=== PATIENT | female | born 1965 | race Two or more races ===

== ENCOUNTER 2017-07-14 23:45 | Emergency (ER) | payer MEDICAID, OTHER ==
[~2017-07-14] VITALS: Ht 160 cm; Wt 61.2 kg
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
[2017-07-15] MEDS ORDERED: HYDROCODONE/APAP 5/325MG 1 EACH TABLET PO ONE (02:30)
[2017-07-15] MEDS ORDERED: HYDROCODONE/APAP 5/325MG 1 EACH TABLET ONE (02:35)
--- NOTE | 2017-07-15 04:14 | NUR ---
Patient discharged to home in stable condition. Written and verbal after care instructions given. Patient verbalizes understanding of instruction. Patient is ambulatory with steady gait. Instructed patient not to drive. vss. nad noted. no further complaints.
[2017-07-15 04:29] VITALS: BP 133/86
== END 2017-07-15 04:30 | disposition home or self-care (01) ==
LOC: ER 23:47
DX: S16.1XXA Strain of muscle, fascia and tendon at neck level, initial encounter (principal); S00.83XA Contusion of other part of head, initial encounter; S20.219A Contusion of unspecified front wall of thorax, initial encounter; I67.1 Cerebral aneurysm, nonruptured; Z88.1 Allergy status to other antibiotic agents; Z88.8 Allergy status to other drugs, medicaments and biological substances; V49.59XA Passenger injured in collision with other motor vehicles in traffic accident, initial encounter; Y93.89 Activity, other specified; Y92.410 Unspecified street and highway as the place of occurrence of the external cause; Y99.8 Other external cause status
CPT/HCPCS: 70450; 70486; 71045; 99284; A4606; Z7610

== ENCOUNTER 2018-02-13 17:34 | Emergency (ER) | payer MEDICAID ==
[~2018-02-13] VITALS: Ht 157.5 cm; Wt 65.8 kg
[2018-02-13 17:34] VITALS: BP 141/70
--- NOTE | 2018-02-13 20:02 | NUR ---
CALLED PT'S NAME THREE TIMES, NO RESPONSE. PT LEFT BEFORE BEING EVALUATED BY MD. MD MADE AWARE
== END 2018-02-13 20:04 | disposition left against medical advice (07) ==
LOC: ER 17:35
DX: Z53.21 Procedure and treatment not carried out due to patient leaving prior to being seen by health care provider (principal); M54.5 Low back pain; M79.652 Pain in left thigh; M79.651 Pain in right thigh; Z98.890 Other specified postprocedural states; Z88.8 Allergy status to other drugs, medicaments and biological substances; Z88.1 Allergy status to other antibiotic agents
CPT/HCPCS: A4606; Z7610

== ENCOUNTER 2018-10-29 22:38 | Emergency (ER) | payer MEDICAID ==
[~2018-10-29] VITALS: Ht 160 cm; Wt 61.2 kg
[2018-10-29 23:10] VITALS: BP 147/79
[2018-10-29] MEDS ORDERED: IBUPROFEN 600 MG TABLET PO ONE (23:45)
[2018-10-30] MEDS ORDERED: IBUPROFEN 600 MG TABLET PO ONE
== END 2018-10-30 00:47 | disposition home or self-care (01) ==
LOC: ER 22:42
DX: S52.691A Other fracture of lower end of right ulna, initial encounter for closed fracture (principal); Z98.890 Other specified postprocedural states; Z88.6 Allergy status to analgesic agent; Z88.1 Allergy status to other antibiotic agents; Z88.8 Allergy status to other drugs, medicaments and biological substances; W22.8XXA Striking against or struck by other objects, initial encounter; Y93.89 Activity, other specified; Y92.89 Other specified places as the place of occurrence of the external cause; Y99.8 Other external cause status
CPT/HCPCS: 73090-TC; 73130-TC

== ENCOUNTER 2019-04-18 15:46 | Emergency (ER) | payer MEDICAID ==
[~2019-04-18] VITALS: Ht 160 cm; Wt 63.5 kg
[2019-04-18 16:09] VITALS: BP 132/74
== END 2019-04-18 16:30 | disposition home or self-care (01) ==
LOC: ER 15:48
DX: H60.92 Unspecified otitis externa, left ear (principal); H66.92 Otitis media, unspecified, left ear; Z98.890 Other specified postprocedural states; Z88.8 Allergy status to other drugs, medicaments and biological substances; Z91.048 Other nonmedicinal substance allergy status

== ENCOUNTER 2019-04-22 20:34 | Emergency (ER) | payer MEDICAID ==
[~2019-04-22] VITALS: Ht 160 cm; Wt 63.5 kg
[2019-04-22 20:34] VITALS: BP 138/68
[2019-04-22] MEDS ORDERED: IBUPROFEN 400 MG TABLET ONE (21:12)
[2019-04-22] MEDS ORDERED: IBUPROFEN 400 MG TABLET PO ONE (21:30)
== END 2019-04-22 21:16 | disposition home or self-care (01) ==
LOC: ER 20:34
DX: H92.03 Otalgia, bilateral (principal); H91.93 Unspecified hearing loss, bilateral; Z98.890 Other specified postprocedural states; Z88.6 Allergy status to analgesic agent; Z88.8 Allergy status to other drugs, medicaments and biological substances; Z88.1 Allergy status to other antibiotic agents

== ENCOUNTER 2021-03-17 20:16 | Emergency (ER) | payer MEDICAID, OTHER ==
[~2021-03-17] VITALS: Ht 162.6 cm; Wt 72.6 kg
--- NOTE | 2021-03-17 22:00 | NUR ---
EMT AT BEDSIDE FOR WOUND CARE AND DERMABOND
[2021-03-17 22:10] VITALS: BP 144/74
[2021-03-17] MEDS ORDERED: TDAP [DIPH/PERTUSSIS/TET] 0.5 ML VIAL IM ONE ×2 (22:30→22:31)
== END 2021-03-17 22:35 | disposition home or self-care (01) ==
LOC: ER 20:18
DX: S61.211A Laceration without foreign body of left index finger without damage to nail, initial encounter (principal); Z88.8 Allergy status to other drugs, medicaments and biological substances; Z88.1 Allergy status to other antibiotic agents; W26.0XXA Contact with knife, initial encounter; Y93.89 Activity, other specified; Y92.89 Other specified places as the place of occurrence of the external cause; Y99.8 Other external cause status
CPT/HCPCS: 90715